=== PATIENT | male | born 1980 | race Caucasian/White ===

== ENCOUNTER 2017-03-05 07:43 | Emergency (ER) | payer MEDICAID ==
[~2017-03-05] VITALS: Ht 172.7 cm; Wt 91.0 kg
[2017-03-05] MEDS ORDERED: IBUPROFEN 600MG TABLET PO ONE (08:45)
[2017-03-05 11:19] VITALS: BP 128/81
== END 2017-03-05 11:21 | disposition home or self-care (01) ==
LOC: ER 08:11
DX: R07.9 Chest pain, unspecified (principal); I10 Essential (primary) hypertension; V89.2XXA Person injured in unspecified motor-vehicle accident, traffic, initial encounter; Y93.89 Activity, other specified; Y92.89 Other specified places as the place of occurrence of the external cause; Y99.8 Other external cause status
CPT/HCPCS: 71111; 72125; 99284